=== PATIENT | male | born 1990 | race Caucasian/White ===

== ENCOUNTER → 2019-11-30 10:50 | Outpatient (CLI) | payer OTHER, SELFPAY ==
[2019-11-28 12:25] VITALS: BMI 22.9
[2019-11-30 12:06] LABS: Mucous, Urine 0 SEEN /hpf (<or=2+); Red Blood Cells-Urine 0 SEEN /hpf (0-5); Squamous Epithelial Cells - UA 0 SEEN /hpf (0-5); White Blood Cells 0 SEEN /hpf (0-5)
[2019-11-30 12:16] LABS: Color, Urine Yellow (Yellow); Glucose, Dipstick Normal (Normal); Ketone-Dipstick Negative (Negative); Leukocyte Esterase-Dipstick Negative /ul (Negative); Nitrite-Dipstick Negative (Negative); Occult Blood-Urine Negative /ul (Negative); Protein-Dipstick Negative (Negative); Urine Bilirubin Dipstick Negative (Negative); Urine Clarity Clear (Clear); Urine Urobilinogen Normal (Normal)
[2019-11-30 12:23] LABS: Bacteria 1+ /hpf (None Seen)
== END ==
PROVIDERS: PCP Family Medicine; Visit Provider Physician Assistant
DX: M54.5 Low back pain (principal); R30.9 Painful micturition, unspecified
CPT/HCPCS: 81001; 87086

== ENCOUNTER → 2020-09-30 16:45 | Outpatient (CLI) | payer OTHER, SELFPAY ==
[2020-09-11 08:12] VITALS: BMI 23.7
--- NOTE | 2020-09-30 16:49 | US_ITS ---
INDICATION: Leg mass EXAMINATION: Left Lower extremity nonvascular ultrasound. TECHNIQUE: Routine and grayscale and color duplex imaging. FINDINGS: At area of palpable concern in the right lateral posterior thigh, there is a 3.3 x 3.7 x 1 cm well-circumscribed oval homogeneous mass in the subcutaneous tissue which is isoechoic to the surrounding adipose tissue. No internal vascularity. No other abnormalities. US/Ext Non Vasc Limited/Soft Tiss IMPRESSION: At area of palpable concern there is a 3.7 cm fat-containing homogeneous well-circumscribed mass. 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 Electronically Signed: Riley Woods MD at 17:26 EDT Tel , Service support ,
== END ==
PROVIDERS: PCP Family Medicine; Referring Provider Family Medicine; Visit Provider Family Medicine
DX: R22.41 Localized swelling, mass and lump, right lower limb (principal)
CPT/HCPCS: 76882

== ENCOUNTER → 2021-01-06 | Outpatient (CLI) | payer OTHER, SELFPAY ==
--- NOTE | 2021-01-06 13:15 | VAS_PTH ---
PATIENT: HARMONY FRENCH LOC: [facility] U#:[id number] AGE/SX: 30/M ROOM: RE01/06/[address]: Dr. Hadley cShilling MD : 1990 BED: DIS: 01/06/2021 SPEC #: [id number] RECD: 01/06/21 15:35 STATUS: ÁNGEL REJaye #: [id number] YAJAIRA: 01/06/21 13:[address]: Hadley Schilling DEPT: SURGICAL PATHOLOGY RECD BY: Lucy Ferguson ENTERED: 01/09/21 08:27 SP TYPE: VAS OTHR DR: Dr. Riley Pearce MD Tissues: A - Vas deferens, NOS B - Vas deferens, NOS Procedures: Surgery Specimen Level II HEADER OPERATION: Bilateral partial vasectomy PRE-OP DIAGNOSIS: Sterilization TISSUE SUBMITTED: A ? Right vas deferens, B ? Left vas deferens MICROSCOPIC DIAGNOSIS A. Right vas deferens, partial vasectomy: Completely transected segment of vas deferens, no pathologic diagnosis. B. Left vas deferens, partial vasectomy: Completely transected segment of vas deferens, no pathologic diagnosis. JACK:[email or web address] 01/10/2021 MICROSCOPIC DESCRIPTION Slides are reviewed. GROSS DESCRIPTION A - Received is one container designated right vas deferens. The specimen consists of a tubular segment of juarez soft tissue measuring 0.9 cm in length and 0.2 cm in diameter. The entire specimen is submitted in one cassette. It will be sectioned at the time of embedding. B - Received is one container designated left vas deferens. The specimen consists of a tubular segment of juarez soft tissue measuring 0.6 cm in length and 0.2 cm in diameter. The entire specimen is submitted in one cassette. It will be sectioned at the time of embedding. / JACK:[email or web address] 01/09/21 TC:4 CPT: 18016 x2
[2021-01-06 13:22] VITALS: BMI 23.7
== END | disposition home or self-care (01) ==
LOC: LABSPEC 15:43
PROVIDERS: PCP Family Medicine; Visit Provider Surgery
DX: Z30.2 Encounter for sterilization (principal)
CPT/HCPCS: 88302

== ENCOUNTER 2021-08-09 07:39 | Outpatient (CLI) | payer OTHER, SELFPAY ==
[2021-08-11 09:08] LABS: Semen Analysis Post Vas ABSENT
== END 2021-08-09 23:59 | disposition home or self-care (01) ==
LOC: LABSPEC 07:41
PROVIDERS: PCP Family Medicine; Referring Provider Surgery; Visit Provider Surgery
DX: Z30.2 Encounter for sterilization (principal)
CPT/HCPCS: 89321

== ENCOUNTER → 2021-11-14 | Outpatient (CLI) | payer OTHER, SELFPAY ==
[2021-11-14 11:38] LABS: Semen Analysis Post Vas ABSENT
[2021-11-15 12:43] LABS: Pathologist Review Reviewed
== END | disposition home or self-care (01) ==
LOC: LABSPEC 07:15
PROVIDERS: PCP Family Medicine; Referring Provider Surgery; Visit Provider Surgery
DX: Z30.2 Encounter for sterilization (principal)
CPT/HCPCS: 89321